=== PATIENT | female | born 1960 | race Caucasian/White ===

== ENCOUNTER 2018-05-06 08:42 | Emergency (ER) | payer BC, OTHER ==
[2018-05-06 08:50] VITALS: BP 159/95
--- NOTE | 2018-05-06 09:41 | UC ---
Laceration HPI - HPI Summary HPI Summary: 57 yo female presents with right middle finger laceration. She tells me that this morning she bought a new knife from [employer] and was using it to cut something. The knife slipped and she sustained a laceration to her right middle fingers. Unsure date of last tetanus. She covered the wound in tumeric and it has clotted. - History Of Current Complaint Chief Complaint: UCLaceration Stated Complaint: FINGER LAC Time Seen by Provider: 05/06/18 09:41 Hx Obtained From: Patient Laceration Location: Finger Mechanism Of Injury: Sharp Trauma Onset/Duration: Sudden Onset Severity: Mild Pain Intensity: 2 Pain Scale Used: 0-10 Numeric - Allergies/Home Medications Allergies/Adverse Reactions: Allergies Allergy/AdvReac Type Severity Reaction Status Date / Time latex Allergy resp issue Verified 05/06/18 08:51 cleaning fluids Allergy resp Uncoded 05/06/18 08:51 reaction Home Medications: Home Medications Fluticasone-Salmeterol 100-50* [Advair Diskus 100-50*] 1 puff INH DAILY [History Confirmed 05/06/18] Levalbuterol Tartrate [Levalbuterol Tartrate Hfa] 1 puff INH DAILY 05/06/18 [ History Confirmed 05/06/18] PMH/Surg Hx/FS Hx/Imm Hx Respiratory History: Asthma - Surgical History Surgical History: Yes Surgery Procedure, Year, and Place: carpal tunnel - Family History Known Family History: Positive: None - Social History Occupation: Employed Full-time Lives: With Family Alcohol Use: None Substance Use Type: None Smoking Status (MU): Never Smoked Tobacco - Immunization History Most Recent Tetanus Shot: checking on status Review of Systems All Other Systems Reviewed And Are Negative: Yes Constitutional: Positive: Negative Skin: Positive: Other - Right middle finger laceration Respiratory: Positive: Negative Cardiovascular: Positive: Negative Musculoskeletal: Positive: Negative Neurological: Positive: Negative Psychological: Positive: Negative Physical Exam - Summary Physical Exam Summary: GENERAL: NAD. WDWN. No pain distress. SKIN: RIGHT MIDDLE FINGER: dorsal radial aspect at intermediate phalanx with 5mm shave-like laceration just through the epidermis. Clotted. Tumeric all over finger. CHEST: No accessory muscle use. Breathing comfortably and in no distress. CV: Pulses intact. Cap refill <2seconds MSK: FROM right middle finger NEURO: Alert. PSYCH: Age appropriate behavior. Triage Information Reviewed: Yes Vital Signs: Initial Vital Signs Temp 98.4 F 05/06/18 08:47 Pulse 94 05/06/18 08:47 Resp 16 05/06/18 08:47 BP 159/95 05/06/18 08:47 Pulse Ox 98 05/06/18 08:47 Vital Signs Reviewed: Yes Laceration Course/Dx - Course/Dx Course Of Treatment: The wound was irrigated with 200mL NS. Laceration not amenable to suturing due to shave-type injury. The wound was bandaged with neosporin and telfa. Advised to keep covered until well healed. Unable to give tdap today as our stock contains latex and pt is allergic. Advised to f/u with PCP for tetanus or with health department. - Diagnosis Provider Diagnosis: Laceration of right middle finger Discharge - Sign-Out/Discharge Documenting (check all that apply): Patient Departure All imaging exams completed and their final reports reviewed: No Studies - Discharge Plan Condition: Stable Disposition: HOME Patient Education Materials: Laceration (DC) Referrals: Rosa Mars MD [Primary Care Provider] - Additional Instructions: If you develop a fever, shortness of breath, chest pain, new or worsening symptoms - please call your PCP or go to the ED. Your blood pressure was high at todays visit. Please see your primary provider within 4 weeks for recheck and re-evaluation. 1) Please keep the area bandaged with a band-aid until well healed 2) Unfortunately our clinic does not have latex-free tetanus shots. Please call your Primary doctor to ask if they can give you one or call the Health Department - Billing Disposition and Condition Condition: STABLE Disposition: Home
== END 2018-05-06 10:21 | disposition home or self-care (01) ==
LOC: UCEAST 08:42
DX: S61.212A Laceration without foreign body of right middle finger without damage to nail, initial encounter (principal); J45.909 Unspecified asthma, uncomplicated; Z79.51 Long term (current) use of inhaled steroids; Z79.899 Other long term (current) drug therapy; Z91.040 Latex allergy status; Z91.048 Other nonmedicinal substance allergy status; W26.8XXA Contact with other sharp object(s), not elsewhere classified, initial encounter; Y92.9 Unspecified place or not applicable
CPT/HCPCS: 99212; G0463